=== PATIENT | female | born 1940 | race Caucasian/White ===

== ENCOUNTER 2016-10-09 16:37 | Inpatient (IN) | payer MEDICARE, BC ==
[~2016-10-09 16:37] MED LIST: AMBIEN CR12.5 MG/BO PO; AMBIEN10 MG; AMBIEN10 MG PO; BENADRYL PO; CLARITIN10 MG; CLORAZEPATE D3.75 MG; COLACE100 MG; CYMBALTA PO; CYMBALTA20 MG PO; DURAGESIC1 PATCH .; GABAPENTIN300 MG; GABAPENTIN600 MG; IVIG; KLOR-CON 1010 MEQ PO; LORTAB 5/500 TA1 TAB; LYRICA25 MG PO; MAG-G500 MG; MAG-G500 MG PO; METHADONE PO; MOTRIN600 MG PO; PREDNISONE PO; TOPAMAX50 M1; TUSSIN DM PO; TYLENOL500 MG; TYLENOL500 MG PO; XANAX0.25 MG; ZOFRAN ODT4 MG/UDTAB PO; ZOLOFT100 MG; [UNRECOGNIZED DRUG - OTHER]; [UNRECOGNIZED DRUG - OTHER] PO
[2016-10-09 18:22] LABS: ABG CO2 ARTERIAL 21 mmol/L (21-27); ARTERIAL BLD GAS O2 SATURATION 96 % (95-98); ARTERIAL BLOOD GAS PCO2 31 mmHg (32-45); ARTERIAL PO2 75 mmHg (70-100); BICARBONATE 20 mmol/L (21-28); BLOOD GAS BASE EXCESS -3 mM/L (-/+3); PH 7.42 Units (7.35-7.45)
[2016-10-09] MEDS ORDERED: IBUPROFEN200 M2 PO (18:29)
[2016-10-09] MEDS ORDERED: ZITHROMAX250 M1 (18:30)
[2016-10-09] MEDS ORDERED: PREDNISONE10 M1 PO (18:32)
[2016-10-09 19:27] LABS: ALB/GLOB RATIO 0.9 (0.8-2.0); ALBUMIN 3.7 g/dl (3.5-5.0); ALKALINE PHOSPHATASE 145 U/L (33-138); ALT/SGPT 29 U/L (12-78); ANION GAP 14 mmol/L (0-20); AST/SGOT 19 U/L (10-40); BILIRUBIN,TOTAL 0.2 mg/dl (0-1.5); BLOOD UREA NITROGEN 13 mg/dl (6-24); CALCIUM 9.2 mg/dl (8.5-10.5); CARBON DIOXIDE-VENOUS 23 mmol/L (22-32); CHLORIDE 109 mmol/l (96-110); CREATININE 0.93 mg/dl (0.50-1.10); GLUCOSE 162 mg/dL (70-110); POTASSIUM 3.2 mmol/L (3.7-5.1); SODIUM 143 mmol/L (135-145); eGFR VALUE FOR BLACK >60 mL/Min
[2016-10-09 20:23] LABS: URINE APPEARANCE CLEAR; URINE BILIRUBIN NEGATIVE (NEG); URINE BLOOD NEGATIVE (NEG); URINE COLOR YELLOW; URINE GLUCOSE (UA) NEGATIVE (NEG); URINE KETONE NEGATIVE (NEG); URINE LEUKOCYTE ESTERASE NEGATIVE (NEG); URINE NITRITE NEGATIVE (NEG); URINE PROTEIN NEGATIVE (NEG); URINE SPECIFIC GRAVITY 1.013 (1.003-1.030)
[2016-10-09 20:47] LABS: BASO % 0.2 % (0-2); HCT-HEMATOCRIT 41.4 % (34.0-49.0); HGB-HEMOGLOBIN 14.5 gm/dl (12.0-15.5); IMMATURE GRANULOCYTES ABSOLUTE 0.15 tho/cmm (0-0.03); IMMATURE GRANULOCYTES PERCENT 1.2 % (0-0.3); LYMPH % 7.2 % (20-45); LYMPH ABSOLUTE COUNT 0.9 tho/cmm (0.8-4.5); MCH (MEAN CORPUSCULAR HGB) 30.1 pg (28.0-32.0); MCV (MEAN CELL VOLUME) 85.9 fl (82.0-96.0); MEAN PLATELET VOLUME 10.3 cmc (9.4-12.4); MONOCYTE ABSOLUTE COUNT 0.5 tho/cmm (0.0-1.2); NEUTROPHILS % 87.4 % (40-80); PLATELET COUNT 346 tho/cmm (150-450); RED BLOOD COUNT 4.82 mil/cmm (4.00-5.20); RED CELL DISTRIBUTION WIDTH 13.3 % (12.4-16.4); WHITE BLOOD COUNT 12.5 tho/cmm (4.0-10.0)
[2016-10-10 05:29] LABS: BASO % 0.3 % (0-2); EOS % 0.1 % (0-7); HCT-HEMATOCRIT 37.9 % (34.0-49.0); HGB-HEMOGLOBIN 13.3 gm/dl (12.0-15.5); IMMATURE GRANULOCYTES ABSOLUTE 0.15 tho/cmm (0-0.03); IMMATURE GRANULOCYTES PERCENT 1.3 % (0-0.3); LYMPH % 8.7 % (20-45); MCH (MEAN CORPUSCULAR HGB) 30.2 pg (28.0-32.0); MCHC MEAN CORPUSCULAR HGB CONC 35.1 % (32.0-36.0); MCV (MEAN CELL VOLUME) 85.9 fl (82.0-96.0); MEAN PLATELET VOLUME 10.3 cmc (9.4-12.4); MONO % 1.3 % (0-12); MONOCYTE ABSOLUTE COUNT 0.2 tho/cmm (0.0-1.2); NEUTROPHIL ABSOLUTE COUNT 9.9 tho/cmm (1.6-8.0); NEUTROPHIL-AUTOMATED 9.9 tho/cmm (1.6-8.0); NEUTROPHILS % 88.3 % (40-80); PLATELET COUNT 270 tho/cmm (150-450); RED BLOOD COUNT 4.41 mil/cmm (4.00-5.20); RED CELL DISTRIBUTION WIDTH 13.5 % (12.4-16.4); WHITE BLOOD COUNT 11.3 tho/cmm (4.0-10.0)
[2016-10-10 05:38] LABS: ANION GAP 12 mmol/L (0-20); BLOOD UREA NITROGEN 11 mg/dl (6-24); CALCIUM 8.5 mg/dl (8.5-10.5); CARBON DIOXIDE-VENOUS 23 mmol/L (22-32); CHLORIDE 111 mmol/l (96-110); CREATININE 0.74 mg/dl (0.50-1.10); GLUCOSE 190 mg/dL (70-110); SODIUM 142 mmol/L (135-145); eGFR VALUE FOR BLACK >60 mL/Min
[2016-10-11 06:20] LABS: PLATELET COUNT 275 tho/cmm (150-450)
[2016-10-12] MEDS ORDERED: TYLENOL325 M2 PO (09:56)
[2016-10-12] MEDS ORDERED: TYLENOL EXTRA500 M1 PO (09:58)
[2016-10-12] MEDS ORDERED: CLOTRIMAZOLE10 M1 PO (09:59)
[2016-10-12] MEDS ORDERED: IPRAT-ALBUT 0.5-3 ML NEB (10:01)
[2016-10-12] MEDS ORDERED: TOPAMAX100 M2 PO (10:07)
[2016-10-12] MEDS ORDERED: XANAX0.25 M1 PO (10:08)
[2016-10-12] MEDS ORDERED: CALCIUM500 M4 PO (10:09)
[2016-10-12] MEDS ORDERED: GUAIFENESIN-CODE5 M1 PO (10:11)
[2016-10-12] MEDS ORDERED: CULTURELLE1 EAC1 PO (10:12)
[2016-10-12] MEDS ORDERED: MIRALAX17 G2 PO (10:13)
[2016-10-12] MEDS ORDERED: CHLORASEPTIC M1 EAC1 MT (10:17)
[2016-10-12] MEDS ORDERED: CEFDINIR300 M1 PO (10:18)
== END 2016-10-12 11:00 | DRG 194 ==
LOC: 5WE 16:37
PROVIDERS: ADMIT Family Medicine
DX: J18.9 Pneumonia, unspecified organism (principal); G61.81 Chronic inflammatory demyelinating polyneuritis; E87.2 Acidosis; G62.9 Polyneuropathy, unspecified; M81.0 Age-related osteoporosis without current pathological fracture; N32.81 Overactive bladder; B37.9 Candidiasis, unspecified; G47.33 Obstructive sleep apnea (adult) (pediatric); N39.3 Stress incontinence (female) (male); F41.9 Anxiety disorder, unspecified; M21.379 Foot drop, unspecified foot; M17.9 Osteoarthritis of knee, unspecified; J30.9 Allergic rhinitis, unspecified; N81.10 Cystocele, unspecified; I83.90 Asymptomatic varicose veins of unspecified lower extremity; G47.00 Insomnia, unspecified; E87.6 Hypokalemia; K59.00 Constipation, unspecified; Z87.891 Personal history of nicotine dependence
CPT/HCPCS: C1751; J0456; J0696; J1650; J2270; J2930; J3480; J7030; J7050; J7512